=== PATIENT | female | born 1985 | race Caucasian/White ===

== ENCOUNTER 2019-01-27 12:19 | Emergency (ER) | payer OTHER, SELFPAY ==
[2019-01-27 12:36] VITALS: BP 119/83; PULSE 93; RESP 16; TEMP 37.3; O2SAT 98; BMI 21.9
== END 2019-01-27 16:09 | disposition left against medical advice (07) ==
PROVIDERS: Emergency Provider Emergency Medicine
DX: Z53.21 Procedure and treatment not carried out due to patient leaving prior to being seen by health care provider (principal)
CPT/HCPCS: 99281